=== PATIENT | male | born 1990 | race African-American/Black ===

== ENCOUNTER 2017-03-02 10:14 | Emergency (ER) | payer OTHER ==
[2017-03-02 10:18] VITALS: BP 114/66; PULSE 100; TEMP 98.2; BMI 20.9
[2017-03-02] MEDS ORDERED: IBUPROFEN 600 MG TABLET (FP) PO ONE ×2 (11:12→11:15)
[2017-03-02] MEDS ORDERED: ALBUTEROL SO4 2.5/IPRATROPIUM 0.5 INH SOL 3 ML VIAL.NEB. NEB ONE ×2 (11:12→11:16)
--- NOTE | 2017-03-02 11:22 | PDOC ---
History of Present Illness - General Chief Complaint: Cold Symptoms Stated Complaint: HEAD PRESSURE, COUGH, COLD Time Seen by Provider: 03/02/17 10:42 History Source: Patient Exam Limitations: No Limitations - History of Present Illness Initial Comments: 03/02/17 11:13 26 yr male with c/o cough , body aches nasal congestion for 3 days. Pt has no medical history smokes 1/2ppd denies drug use occasional ETOH. no shortness of breath. Past History - Past Medical History Allergies/Adverse Reactions: Allergies Allergy/AdvReac Type Severity Reaction Status Date / Time Penicillins Allergy Rash Verified 03/02/17 10:18 venom-honey bee AdvReac Severe Difficulty Verified 03/02/17 10:18 [bee venom (honey bee)] Breathing Home Medications: Ambulatory Orders Doxycycline Hyclate 100 mg PO BID #14 capsule 03/02/17 Fluticasone Prop 0.05% Nasal [Flonase -] 1 - 2 spray NS DAILY #1 spray.pump 02/13 Asthma: Yes (MILD SPORTS INDUCED) - Psycho/Social/Smoking Cessation Hx Anxiety: No Suicidal Ideation: No Smoking History: Never smoked Number of Cigarettes Smoked Daily: 1 Information on smoking cessation initiated: No Hx Alcohol Use: No Drug/Substance Use Hx: No Substance Use Type: None *Physical Exam - Vital Signs Last Vital Signs Temp Pulse Resp BP Pulse Ox 98.2 F 100 H 18 114/66 99 03/02/17 10:15 03/02/17 10:15 03/02/17 10:15 03/02/17 10:15 03/02/17 10:15 - Physical Exam General Appearance: Yes: Nourished, Appropriately Dressed HEENT: positive: EOMI, NATHANIEL, Normal ENT Inspection, TMs Normal, Pharynx Normal, Nasal Congestion, Sinus Tenderness Neck: positive: Supple Respiratory/Chest: positive: Lungs Clear, Normal Breath Sounds, Other ( productive cough ) Cardiovascular: positive: Regular Rhythm, Regular Rate Gastrointestinal/Abdominal: positive: Normal Bowel Sounds, Soft Musculoskeletal: positive: Normal Inspection Extremity: positive: Normal Capillary Refill, Normal Inspection Integumentary: positive: Normal Color, Dry, Warm Neurologic: positive: Fully Oriented, Alert, Normal Mood/Affect, Normal Response , Motor Strength 5/5 *DC/Admit/Observation/Transfer Diagnosis at time of Disposition: Acute bacterial sinusitis - Discharge Dispostion Disposition: HOME Condition at time of disposition: Good - Prescriptions Prescriptions: Doxycycline Hyclate 100 mg PO BID #14 capsule Fluticasone Prop 0.05% Nasal [Flonase -] 1 - 2 spray NS DAILY #1 spray.pump - Referrals Referrals: Mohamud Schulte MD [Staff Physician] - Hector Payton DO [Staff Physician] - - Patient Instructions Additional Instructions: drink pleanty of water take motrin 600mg every 6hrs for pain and headache take the anitbiotic as prescribed and use the nose spray as prescribed for one week follow with the ENT for follow up also follow with the correspondence representative Dr. Payton for your upset stomach return to ER if any worsening symptoms - Post Discharge Activity Work/School Note: Back to Work
== END 2017-03-02 12:20 | disposition home or self-care (01) ==
LOC: JERFT 10:14
PROC: 3E0F7GC Introduction of Other Therapeutic Substance into Respiratory Tract, Via Natural or Artificial Opening (ICD-10-PCS; principal; 2017-03-02)
DX: J01.80 Other acute sinusitis (principal); B96.89 Other specified bacterial agents as the cause of diseases classified elsewhere; Z87.891 Personal history of nicotine dependence
CPT/HCPCS: 87804; 99281-25